=== PATIENT | female | born 1975 | race Asian ===

== ENCOUNTER 2017-02-18 13:49 | Emergency (ER) | payer BC ==
[~2017-02-18 13:49] MED LIST: BACTRIM DS PO; NO MEDICATIONS; PYRIDIUM PO
[2017-02-18 14:15] LABS: URINE SOURCE CLEAN CATCH
[2017-02-18 14:32] LABS: CULTURE INDICATED? YES; URINE APPEARANCE CLEAR; URINE BACTERIA AUWI 1+ (NEGATIVE); URINE BILIRUBIN NEG (NEG); URINE BLOOD TRACE (NEG); URINE COLOR YELLOW; URINE GLUCOSE NEG (NEG); URINE KETONE NEG (NEG); URINE LEUKOCYTE ESTERASE 1+ (NEG); URINE NITRATE NEG (NEG); URINE PH 6.5 (5-8); URINE PROTEIN NEG (NEG); URINE SPECIFIC GRAVITY 1.016 (1.003-1.035); URINE SQUAMOUS EPITHELIAL CELL OCC /[HPF]
== END 2017-02-18 17:35 | disposition home or self-care (01) ==
LOC: CED 13:49
PROVIDERS: Emergency Medicine
DX: G43.109 Migraine with aura, not intractable, without status migrainosus (principal)
CPT/HCPCS: 81003; 84703; 87086; 96372; 99283; J3030